=== PATIENT | male | born 1955 | race Caucasian/White ===

== ENCOUNTER 2016-12-21 09:01 | Day surgery (SDC) | payer BC ==
[~2016-12-21] VITALS: Ht 177.8 cm; Wt 108.9 kg
[~2016-12-21 09:01] MED LIST: CHANTIX0.5 MG PO; CIPROFLOXACN500 MG PO; LEXAPRO10 MG PO; METRONIDAZOL500 MG PO; MULTIVITAMIN PO; ULTRAM50 M1 PO; ZOFRAN ODT4 MG PO; [UNRECOGNIZED DRUG - REMARK] PO
[2016-12-21 12:17] VITALS: BP 111/74
== END 2016-12-21 12:40 | disposition home or self-care (01) | DRG 951 ==
LOC: ENDO 09:01
PROVIDERS: ATTEND Surgery
PROC: 0DJD8ZZ Inspection of Lower Intestinal Tract, Via Natural or Artificial Opening Endoscopic (ICD-10-PCS; principal; 2016-12-21)
DX: Z12.11 Encounter for screening for malignant neoplasm of colon (principal); E11.9 Type 2 diabetes mellitus without complications; K57.30 Diverticulosis of large intestine without perforation or abscess without bleeding; E78.00 Pure hypercholesterolemia, unspecified; I25.10 Atherosclerotic heart disease of native coronary artery without angina pectoris